=== PATIENT | female | born 1990 | race Caucasian/White ===

== ENCOUNTER → 2018-04-06 12:47 | Outpatient (CLI) | payer OTHER, MEDICAID, SELFPAY ==
--- NOTE | 2018-04-06 | DI.US.S_ITS ---
PROCEDURE: US PELVIC COMPLETE INDICATIONS: DISPLACEMENT IUD TECHNIQUE: Real-time scanning was performed of the pelvic organs, with image documentation. Additional endovaginal scanning was necessary due to incomplete visualization of the adnexal and endometrial structures by transabdominal scanning. COMPARISON: None. FINDINGS: Transabdominal scanning: Limited scanning through the kidneys shows no hydronephrosis. No pathologic free abdominal or pelvic fluid. Endovaginal scanning: Uterus: Uterus is normal in size at 7.7 x 3.6 x 4.9 cm. The endometrium measures 4.0 mm in combined thickness. Intrauterine device in expected position. Ovaries: Involuting 13 mm physiologic right ovarian cyst and otherwise normal appearance the ovaries. IMPRESSION: Intrauterine device in expected position. Dictated by: Jun HITCHCOCK Interpreted: Jaylin Jacome MD on 04/06/2018 at 14:13 Approved by: Jaylin Jacome M.D. on 04/06/2018 at 15:16
== END ==
PROVIDERS: PCP Family Medicine; Visit Provider Physician Assistant
DX: T83.9XXA Unspecified complication of genitourinary prosthetic device, implant and graft, initial encounter (principal)
CPT/HCPCS: 76830; 76856

== ENCOUNTER → 2019-01-31 13:50 | Outpatient (CLI) | payer OTHER, MEDICAID, SELFPAY ==
[2019-01-31 16:31] LABS: Urine N gonorrhoeae NOT DETECTED
[2019-01-31 16:32] LABS: Urine Chlamydia NOT DETECTED
== END ==
PROVIDERS: PCP Family Medicine; Visit Provider Obstetrics & Gynecology
DX: Z34.91 Encounter for supervision of normal pregnancy, unspecified, first trimester (principal)
CPT/HCPCS: 87491; 87591

== ENCOUNTER → 2019-03-01 11:34 | Outpatient (CLI) | payer OTHER, MEDICAID, SELFPAY ==
--- NOTE | 2019-03-01 11:36 | DI.US.S_ITS ---
PROCEDURE: US OB >= 14 WEEKS FETUS INDICATIONS: ANATOMY OUTSIDE/PRIOR DATING DATA: Last menstrual period (LMP): 09/27/18. LMP-based estimated date of delivery (YOLIE): 07/04/19. First dating scan (date and location): 12/22/18. Estimated date of delivery (YOLIE) from first dating scan: 07/12/19. TECHNIQUE: Real-time scanning was performed of the fetus, with image documentation and biometric measurements. COMPARISON: [facility], [place], US OB < 14 WEEKS, 12/22/2018, 11:52. FINDINGS: General: A single living intrauterine gestation is present. Presentation: Cephalic Placenta: Placental position is anterior Amniotic fluid index: 17.8 cm, normal range is 5-24 cm. heart rate: 145 beats per minute. Maternal cervical canal: 5.1 cm in length biometrics: Biparietal diameter: 5.2 cm, 21 weeks 5 days Head circumference: 18.7 cm, 21 weeks 0 days Abdominal circumference: 16.2 cm, 21 weeks 2 days Femur length: 3.2 cm, 19 weeks 6 days Estimated gestational age from initial scan: 21 weeks 0 days Composite gestational age from present scan: 21 weeks 0 days Estimated weight and percentile: 372 g (30th percentile) is Measurement variability for biometric dating: +/- 7 days from 14 weeks to 15 weeks 6 days gestation, +/- 10 days from 16 weeks to 21 weeks 6 days gestation, +/- 2 weeks from 22 weeks to 27 weeks 6 days gestation, +/- 3 weeks for 28 weeks gestation or later. weight reference: 4500 g or EFW >90/95% is considered macrosomia or large for gestational age. EFW <10% is small for gestational age. EFW 5% or less is considered intra-uterine growth restriction. Anatomic survey: Neuro: Ventricles are non-dilated at less than 10 mm. Cisterna magna is normal at 3-11 mm. Cerebellum is normal in size and morphology. Nuchal skin fold: Normal at less than 6 mm between 14-21 weeks gestational age. Face: Nose and lips, facial profile are normal. Spine: No evidence for spina bifida. Heart: 4-chambered heart is present, with normal ventricular outflow tracts. Diaphragm: Diaphragm is intact. Stomach: Left-sided stomach is present. Kidneys: No hydronephrosis. Normal is less than 5 mm in 2nd trimester, less than 7 mm in 3rd trimester. Cord: 3-vessel cord has orthotopic insertion. Bladder: Normal in size. Extremities: All 4 extremities identified. IMPRESSION: 1. Single live intrauterine at 21 weeks 0 days is concordant with the clinical dates and has demonstrated appropriate interval growth. 2. No anatomic abnormalities are evident. Dictated by: Tramaine Grande M.D. on 03/01/2019 at 14:50 Approved by: Tramaine Grande M.D. on 03/01/2019 at 14:52
== END ==
PROVIDERS: PCP Family Medicine; Visit Provider Obstetrics & Gynecology
DX: Z34.82 Encounter for supervision of other normal pregnancy, second trimester (principal); Z3A.21 21 weeks gestation of pregnancy
CPT/HCPCS: 76811

== ENCOUNTER → 2019-04-07 13:08 | Outpatient (CLI) | payer OTHER, MEDICAID, SELFPAY ==
[2019-04-07 13:43] LABS: Appearance Urine UA CLEAR; Bilirubin Urine UA NEGATIVE (NEGATIVE); Color Urine UA YELLOW; Glucose Urine UA NEGATIVE (Negative); Ketones Urine UA NEGATIVE (NEGATIVE); Leukocyte Esterase Urine UA NEGATIVE (NEGATIVE); Nitrite Urine UA NEGATIVE (Negative); Occult Blood Urine UA NEGATIVE (Negative); Protein Urine UA NEGATIVE (Negative); Urobilinogen Urine UA 0.2 E.U./dL (0.2); pH Urine UA 7.5 (4.5-8.0)
[2019-04-07 15:35] LABS: Add Manual Diff / Slide Review NO; Basophils Absolute Auto 0 /uL (0-100); Basophils Percent Auto 0.3 % (0-2); Eosinophils Absolute Auto 100 /uL (0-450); Hematocrit 33.8 % (36-46); Hemoglobin 11.5 g/dL (12.0-16.0); Lymphocytes Absolute Auto 1800 /uL (1100-4500); Lymphocytes Percent Auto 14.9 % (25-40); Mean Corpuscular HGB Conc 34.1 % (30-36); Mean Corpuscular Volume 87.7 fL (80-100); Monocytes Absolute Auto 900 /uL (0-900); Monocytes Percent Auto 7.3 % (3-14); Neutrophils Absolute Auto 9200 /uL (1500-7000); Neutrophils Percent Auto 76.5 % (50-75); Platelet Count 261 X10^3/uL (150-400); Red Blood Cell Count 3.85 X10^6/uL (4.0-5.2)
[2019-04-07 15:57] LABS: GTT (PREG) 1 Hour PP 50gm Dose 105 mg/dL (76-139)
[2019-04-07 16:42] LABS: Hepatitis B Surface Antigen NEGATIVE s/c (NEGATIVE); Rubella Antibody IgG 64.7 IU/mL (>15)
[2019-04-07 16:43] LABS: HIV 1 and 2 Antibody NEGATIVE (NEGATIVE); Hep C Virus Ab w/Reflex Quant NEGATIVE s/c (NEGATIVE)
[2019-04-09 17:08] LABS: RPR Screen Nonreactive (Nonreactive)
== END ==
PROVIDERS: PCP Family Medicine; Visit Provider Obstetrics & Gynecology
DX: Z34.82 Encounter for supervision of other normal pregnancy, second trimester (principal)
CPT/HCPCS: 36415; 80055; 81003; 82950; 86703; 86787; 86803; 86850; 86900; 86901; 87086

== ENCOUNTER → 2019-05-10 18:54 | Outpatient (ROUT) | payer OTHER, MEDICAID, SELFPAY ==
[2019-05-10 19:03] LABS: RBC Urine None Seen (0-5/HPF)
[2019-05-10 19:22] LABS: Appearance Urine UA CLEAR; Bilirubin Urine UA NEGATIVE (NEGATIVE); Color Urine UA YELLOW; Glucose Urine UA NEGATIVE (Negative); Ketones Urine UA TRACE (NEGATIVE); Leukocyte Esterase Urine UA NEGATIVE (NEGATIVE); Nitrite Urine UA NEGATIVE (Negative); Occult Blood Urine UA NEGATIVE (Negative); Protein Urine UA TRACE (Negative); Urobilinogen Urine UA 0.2 E.U./dL (0.2)
[2019-05-10 19:26] LABS: Amorphous Sediment Urine 1+; Bacteria Urine Occasional (0-1); Culture Indicated Urine Cult Not Indicated; Mucus Urine 3+ (Negative); Squamous Epithelial Cell Urine 1-5 /HPF (0-5/HPF); WBC Urine 1-5/HPF (0-5/HPF)
== END ==
PROVIDERS: PCP Family Medicine; Visit Provider Obstetrics & Gynecology
DX: R82.90 Unspecified abnormal findings in urine (principal)
CPT/HCPCS: 81001

== ENCOUNTER → 2019-06-07 17:15 | Outpatient (CLI) | payer OTHER, MEDICAID, SELFPAY ==
[2019-06-08 20:49] LABS: Strep Grp B PCR NEG for Grp B Strep
== END ==
PROVIDERS: PCP Family Medicine; Visit Provider Obstetrics & Gynecology
DX: Z36.85 Encounter for antenatal screening for Streptococcus B (principal); Z34.83 Encounter for supervision of other normal pregnancy, third trimester
CPT/HCPCS: 87653

== ENCOUNTER 2019-07-14 15:44 | Outpatient (CLI) | payer OTHER, MEDICAID, SELFPAY ==
--- NOTE | 2019-07-17 13:14 | P.TNLD_ITS ---
Visit Information Visit Information Date of evaluation: 07/14/19 Primary OB Provider: Missy Arreguin Reason for Evaluation: Yes non-stress test non-stress test reason: other (Postdates) [facility] Social History Smoking Status: Never smoker (MARIJUANA) Social History Smoking Status: Never smoker (MARIJUANA) Evaluation Evaluation Baseline heart rate: 145 Variability: Moderate (11-25) monitor accelerations: Present monitor decelerations: Absent Category of Tracing: I Cervical dilation (cm): 1 Cervical effacement (%): 85 Diagnosis, Plan/Disposition Plan/Disposition Plan: Assessment: 29-year-old 2 para 1 at 40-,2/7 weeks gestation with a category 1 nonstress test Plan: Follow -up 07/18/2019 for induction of labor kick counts reviewed OB Disposition: home
== END 2019-07-14 17:20 | disposition home or self-care (01) ==
LOC: LABOR 17:30 → OB 07-15 13:38
PROVIDERS: PCP Family Medicine; Visit Provider Obstetrics & Gynecology
DX: O48.0 Post-term pregnancy (principal); Z3A.40 40 weeks gestation of pregnancy
CPT/HCPCS: 59025; G0378; G0379

== ENCOUNTER 2019-07-17 18:52 | Inpatient (IN) | payer OTHER, MEDICAID, SELFPAY ==
[2019-07-17 20:25] LABS: Add Manual Diff / Slide Review NO; Basophils Absolute Auto 100 /uL (0-100); Basophils Percent Auto 0.5 % (0-2); Eosinophils Absolute Auto 100 /uL (0-450); Eosinophils Percent Auto 0.5 % (2-4); Hematocrit 31.5 % (36-46); Hemoglobin 10.3 g/dL (12.0-16.0); Lymphocytes Absolute Auto 2000 /uL (1100-4500); Lymphocytes Percent Auto 16.1 % (25-40); Mean Corpuscular HGB Conc 32.8 % (30-36); Mean Corpuscular Hemoglobin 26.9 PG (26-34); Mean Corpuscular Volume 81.9 fL (80-100); Monocytes Absolute Auto 900 /uL (0-900); Monocytes Percent Auto 7.6 % (3-14); Neutrophils Absolute Auto 9300 /uL (1500-7000); Neutrophils Percent Auto 75.3 % (50-75); Platelet Count 238 X10^3/uL (150-400); Red Blood Cell Count 3.84 X10^6/uL (4.0-5.2); Red Cell Distribution Width 14.4 % (11.6-14.8); White Blood Cell Count 12.3 X10^3/uL (4.5-11.0)
[2019-07-17] MEDS: miSOPROStol 25 MCG TABLET VAG (20:32)
[2019-07-18] MEDS: OXYTOCIN PREMIX 30 UNIT/500 ML PLAST..BAG IV (07:00)
[2019-07-18] MEDS: LACTATED RINGERS 1,000 ML 100 ML IV ×5 (07:00→20:35)
[2019-07-18] MEDS: FENT 2MCG/ML BUPIV 0.125% EPI 200 MCG/100 ML PLAST..BAG 10 MCG EPIDURAL (08:00)
[2019-07-18] MEDS: FENT 2MCG/ML BUPIV 0.125% EPI 200 MCG/100 ML PLAST..BAG 12 MCG EPIDURAL (16:31)
[2019-07-18] MEDS: ONDANSETRON 4 MG/2 ML INJ IV (17:05)
--- NOTE | 2019-07-18 17:23 | PM.OBHP.1 ---
OB HPI Date/Time Date of admission: 07/18/19 Date Patient Seen: 07/18/19 Time Patient Seen: 07:30 History of Present Condition Chief complaint: LABOR & DELIVERY : 2 Para: 1 Estimated Date of Delivery: 07/12/19 Estimated Gestational Age (weeks): 41 Narrative: Lindsey Garzon is a 29 year old female 2 para 1 at 41 weeks gestation. Patient received 1 Cytotec overnight. She is started on Pitocin. Indications Indication for induction OB: post dates History of Present care: good care, initiated at week # (10), number of visits (11) and pounds weight gain (40) Dating criteria: LMP confirmed by 1st trimester US Ultrasounds: normal 1st trimester US and normal mid trimester US Obstetrical complications: none Medical complications: none Preadmission Labs Blood type: O (+) positive -: Antibody screen: negative, GBS status: negative, HBsAG: negative, HIV: negative and RPR/VDLR: negative -: Chlamydia screen: not detected and Gonorrhea screen: not detected -: Rubella: immune and Varicella: immune HCAB: negative Urine: Lactobacillus 1 hr GTT: 105 Prior (ies) History: 07/15/[address] Arreguin Evaluation Evaluation Baseline heart rate: 135 Variability: Moderate (11-25) monitor accelerations: Present monitor decelerations: Absent Contraction Frequency (minutes): 3 Uterine Contraction Intensity: Moderate Category of Tracing: I Cervical dilation (cm): 3 Cervical effacement (%): 80 station: -1 Laboratory results: Laboratory Tests 07/17/19 07/17/19 19:45 19:45 WBC 12.3 H RBC 3.84 L Hgb 10.3 L Hct 31.5 L MCV 81.9 MCH 26.9 MCHC 32.8 RDW 14.4 Plt Count 238 Neut % (Auto) 75.3 H Lymph % (Auto) 16.1 L [place] % (Auto) 7.6 Eos % (Auto) 0.5 L Baso % (Auto) 0.5 Neut # (Auto) 9300 H Lymph # (Auto) 2000 [place] # (Auto) 900 Eos # (Auto) 100 Baso # (Auto) 100 Blood Type O Positive Antibody Screen Negative [facility] Social History Smoking Status: Current every day smoker Social History Smoking Status: Current every day smoker Meds Home Medications and Allergies Home Medications Medication Instructions Recorded Confirmed Type prenat.vits,valente,xiu-aurf-emhbr 1 tab PO DAILY 12/02/18 07/17/19 History lcmhmgxxzc-ncgljhizvqzcz-wgjdojcz See Rx Instructions PO Q4-6H PRN 06/10/19 07/17/19 Rx 50 mg-325 mg-40 mg tablet #30 tab Allergies Allergy/AdvReac Type Severity Reaction Status Date / Time amoxicillin Allergy Unknown Verified 07/17/19 20:16 Exam Vital Signs (past 8 hours): Generally: Patient in moderate distress secondary to pain and contractions Lungs: Clear to auscultation bilaterally Cardiovascular: Regular rate and rhythm FH: 40 cm Estimated weight: 8 lb Extremities: Negative Homans, no edema Objective Labs Result Diagrams: 07/17/19 19:45 Labs: Laboratory Results - last 24 hr 07/17/19 07/17/19 19:45 19:45 WBC 12.3 H RBC 3.84 L Hgb 10.3 L Hct 31.5 L MCV 81.9 MCH 26.9 MCHC 32.8 RDW 14.4 Plt Count 238 Neut % (Auto) 75.3 H Lymph % (Auto) 16.1 L [place] % (Auto) 7.6 Eos % (Auto) 0.5 L Baso % (Auto) 0.5 Neut # (Auto) 9300 H Lymph # (Auto) 2000 [place] # (Auto) 900 Eos # (Auto) 100 Baso # (Auto) 100 Blood Type O Positive Antibody Screen Negative Assessment and Plan Assessment and Plan Assessment and Plan narrative: Assessment: 29-year-old 2 para 1 at 41 weeks gestation status post Cytotec x1 Plan: Pitocin induction of labor Epidural as necessary Artificial rupture of membranes when able Expected management to spontaneous vaginal delivery
--- NOTE | 2019-07-18 21:42 | PM.OBPRVD ---
 Events: Labor Induction Labor & Delivery Delivery date: 07/18/19 Intrapartal events: None Cervical ripening method: per misoprostal protocol Induction method: per pitocin protocol Delivery augmentation: rupture of membranes Delivery monitor: external FHT, external uterine and internal uterine Route of delivery: Episiotomy description: None L&D Laceration Description: Labial (Left side first-degree) Delivery repair: vicryl Estimated blood loss (mL): 150 Anesthesia type: Epidural Complications: Double nuchal cord Narrative: Patient complete and pushed for about 30 minutes. At 9:21 p.m., a live male infant delivered spontaneously over an intact perineum. A double nuchal cord that was are loose were reduced on the perineum. The remainder of the body delivered without difficulty and infant was placed on mom's abdomen. The cord was double clamped and cut immediately and the infant was taken to the warmer due to decreased tone and decreased heart rate. The placenta delivered intact with a 3 vessel cord at 9:25 p.m.. Pitocin was given in the IV fluids prior to Placental delivery. Fundus was massaged to firm. There was a left-sided labial tear that was repaired with 3 0 Vicryl in a running fashion. Hemostasis was achieved. Apgars not available at the time of dictation. Epidural analgesia. . Mom stable to recovery. at the warmer with peds, RN, and RT. Plan for aftercare: To routine care
[2019-07-19] MEDS: IBUPROFEN 600 MG TABLET PO ×2 (00:50→08:46)
[2019-07-19 05:12] LABS: Hematocrit 30.6 % (36-46); Hemoglobin 10.1 g/dL (12.0-16.0)
[2019-07-19] MEDS: PRENATAL VIT,CALC/IRON/FOLIC 1 TABLET 1 TAB PO (08:46)
[2019-07-19] MEDS: DOCUSATE 250 MG CAPSULE PO (08:46)
--- NOTE | 2019-07-19 17:39 | P.DS_ITS ---
Discharge Providers Provider Date of admission: 07/17/19 18:52 Discharge Date: 07/19/19 Primary care physician: Fariba Malik MD Consults: 07/18/19 23:29 Consult to Polystyrene Bead Molder Routine Comment: Discharge provider: Missy Arreguin MD Summary Hospital Course Date Patient Seen: 07/19/19 Time Patient Seen: 08:30 Procedures: Cytotec cervical ripening Pitocin induction of labor Artificial rupture of membranes Epidural analgesia Intrauterine pressure catheter Spontaneous vaginal delivery Left labial laceration repair Hospital Course: Patient is a 29-year-old 2 para 2 who presented on 07/17/2019 for cervical ripening with Cytotec. She received 1 dose of 25 mcg intravaginal. On the morning of 07/18/2019 she had progressed to 2 cm. Pitocin was started. Artificial rupture of membranes was performed at approximately 10:00 a.m. with copious amounts of clear amniotic fluid. She received an epidural for pain management prior to artificial rupture membranes. She progressed slowly to complete dilation. She had some occasional variable decelerations. Just before delivery there was tachycardia that went from the 140s to 150s up to the 180s to 200s. The baby delivered soon after. At 9:21 p.m. she had a spontaneou s vaginal delivery of a live male . A left labial tear was repaired. The placenta delivered without complication. The baby required resuscitation. And was eventually transferred to [facility]. Mom had no complications and was discharged home on day # 1. She is to follow up at 6 weeks. Peripartum Data Delivery Method: Natural Vaginal Laceration description: Labial Episiotomy description: None complications: none Status at Discharge Cognitive/behavioral status at discharge: oriented Functional status at discharge: independent ambulation Overall status at discharge: patient is progressing back to baseline Time Spent with Patient Time attestation: Total time spent providing and/or coordinating discharge services: Time spent: Less than 30 minutes Objective Labs Result Diagrams: 07/19/19 04:50 Labs: Laboratory Results - last 24 hr 07/19/19 04:50 Hgb 10.1 L Hct 30.6 L Exam Vital Signs (past 8 hours): Generally: Patient is sitting up in bed, no acute distress Fundus: Firm at U -1 Perineum: Intact Extremities: Negative Homans, no edema Discharge Plan Discharge Plan Patient Disposition: Home Discharge comment: Call with fever, chills, redness or drainage around the incisions or bleeding vaginally more than a pad in an hour Discharge Med Rec/Prescriptions Prescriptions: New oxycodone-acetaminophen [Percocet] 5-325 mg tablet 1 tab PO Q4-6H PRN (Reason: pain) Qty: 20 RF: 0 ibuprofen 600 mg tablet 600 mg PO Q6H PRN (Reason: cramping) Qty: 30 RF: 0 Continued prenat.vits,valente,ypd-mpgv-grcng tablet 1 tab PO DAILY RF: 0 ukydpssmne-rfaoaqstfryyx-wbrq 50-325-40 mg tablet See Rx Instructions PO Q4-6H PRN (Reason: pain) Qty: 30 RF: 0 Follow up/Referrals: Missy Arreguin MD [Physician] - 6 Weeks (please f/u w/ Dr. Arreguin on Thursday, @ 3pm, check in @ 2:40pm) Provider Discharge Instructions Diet: Regular Activity: No intercourse Skin/Wound/Dressing Care Report to your healthcare provider any signs of infection, such as:: chills, fever, increased pain, unusual drainage and unusual redness Visit Report/Discharge Packet Instructions: DI for Labor and Delivery, Vaginal Stand Alone Forms: Discharge: Care Discharge Data Primary Care Provider: Fariba Malik Discharges patient from system. Discharge Date/Time: 07/19/19 10:39
== END 2019-07-19 10:39 | disposition home or self-care (01) | DRG 560 ==
PROVIDERS: Admitting Provider Obstetrics & Gynecology; PCP Family Medicine; Visit Provider Obstetrics & Gynecology
DX: O69.81X0 Labor and delivery complicated by cord around neck, without compression, not applicable or unspecified (principal); O70.0 First degree perineal laceration during delivery; Z3A.41 41 weeks gestation of pregnancy; Z37.0 Single live birth; O48.0 Post-term pregnancy
CPT/HCPCS: 01967; 36415; 59050; 59409; 76815; 85014; 85018; 85025; 86850; 86900; 86901; G0379; J2405; J2590

== ENCOUNTER → 2021-11-15 12:01 | Outpatient (CLI) | payer OTHER, MEDICAID, SELFPAY ==
[2021-11-15 19:00] LABS: Alanine Aminotransferase 11 IU/L (<35); Albumin 4.5 g/dL (3.5-5.0); Albumin Globulin Ratio 1.8 (1.0-2.8); Alkaline Phosphatase 45 U/L (38-126); Aspartate Aminotransferase 20 IU/L (14-36); BUN Creatinine Ratio 18.1 (6-22); Bilirubin Total 0.7 mg/dL (0.2-1.3); Blood Urea Nitrogen 13 mg/dL (7-17); Calcium 9.7 mg/dL (8.4-10.2); Carbon Dioxide 26 mmol/L (22-32); Chloride 107 mmol/L (98-107); Estimated Glomerular Filt Rate > 60.0 mL/min (>60); Globulin 2.5 g/dL (1.7-4.1); Glucose 91 mg/dL (70-100); HEMOLYSIS < 15 (0-50); Sodium 138 mmol/L (137-145)
[2021-11-15 19:07] LABS: Add Manual Diff / Slide Review NO; Basophils Absolute Auto 100 /uL (0-100); Eosinophils Absolute Auto 0 /uL (0-450); Eosinophils Percent Auto 0.4 % (2-4); Hematocrit 38.1 % (36-46); Hemoglobin 13.2 g/dL (12.0-16.0); Lymphocytes Absolute Auto 1900 /uL (1100-4500); Lymphocytes Percent Auto 19.7 % (25-40); Mean Corpuscular HGB Conc 34.8 % (30-36); Mean Corpuscular Hemoglobin 29.7 PG (26-34); Mean Corpuscular Volume 85.4 fL (80-100); Monocytes Absolute Auto 700 /uL (0-900); Monocytes Percent Auto 7.6 % (3-14); Neutrophils Absolute Auto 6800 /uL (1500-7000); Neutrophils Percent Auto 71.3 % (50-75); Platelet Count 259 X10^3/uL (150-400); Red Blood Cell Count 4.46 X10^6/uL (4.0-5.2); Red Cell Distribution Width 13.1 % (11.6-14.8); White Blood Cell Count 9.6 X10^3/uL (4.5-11.0)
[2021-11-15 19:18] LABS: Free T3, Triiodothyronine Free 3.37 pg/mL (2.77-5.27)
[2021-11-15 19:31] LABS: TSH w/ Reflex to FT4 1.58 uIU/mL (0.47-4.68)
== END ==
PROVIDERS: PCP Family Medicine; Visit Provider Physician Assistant Medical
DX: R00.2 Palpitations (principal); R06.00 Dyspnea, unspecified
CPT/HCPCS: 80053; 84443; 84481; 85025

== ENCOUNTER → 2021-12-11 10:14 | Outpatient (CLI) | payer OTHER, MEDICAID, SELFPAY ==
[2021-12-11 19:13] LABS: Pregnancy Test Serum,Qual Negative (Negative)
[2021-12-11 19:34] LABS: TSH w/ Reflex to FT4 1.89 uIU/mL (0.47-4.68)
== END ==
PROVIDERS: PCP Family Medicine; Visit Provider Physician Assistant
DX: F41.9 Anxiety disorder, unspecified (principal); N91.2 Amenorrhea, unspecified
CPT/HCPCS: 84443; 84703

== ENCOUNTER → 2022-07-09 15:14 | Outpatient (CLI) | payer OTHER, MEDICAID, SELFPAY | PROVIDERS: PCP Family Medicine; Visit Provider Physician Assistant | DX: R35.0 Frequency of micturition (principal) | CPT/HCPCS: 81002; 87086 ==

== ENCOUNTER → 2023-08-19 10:31 | Outpatient (CLI) | payer OTHER, SELFPAY ==
[2023-08-19 19:14] LABS: Add Manual Diff / Slide Review NO; Basophils Absolute Auto 0 /uL (0-100); Basophils Percent Auto 0.9 % (0-2); Eosinophils Absolute Auto 100 /uL (0-450); Eosinophils Percent Auto 2.2 % (2-4); Hematocrit 37.5 % (36-46); Hemoglobin 12.8 g/dL (12.0-16.0); Lymphocytes Absolute Auto 1800 /uL (1100-4500); Mean Corpuscular HGB Conc 34.1 % (30-36); Mean Corpuscular Hemoglobin 29.5 PG (26-34); Mean Corpuscular Volume 86.3 fL (80-100); Monocytes Absolute Auto 400 /uL (0-900); Monocytes Percent Auto 8.1 % (3-14); Neutrophils Absolute Auto 2700 /uL (1500-7000); Neutrophils Percent Auto 53.8 % (50-75); Platelet Count 267 X10^3/uL (150-400); Red Blood Cell Count 4.34 X10^6/uL (4.0-5.2); Red Cell Distribution Width 12.5 % (11.6-14.8)
[2023-08-19 19:39] LABS: Alanine Aminotransferase 17 IU/L (<35); Albumin 4.3 g/dL (3.5-5.0); Albumin Globulin Ratio 1.9 (1.0-2.8); Alkaline Phosphatase 41 U/L (38-126); Aspartate Aminotransferase 24 IU/L (14-36); BUN Creatinine Ratio 17.7 (6-22); Bilirubin Total 0.5 mg/dL (0.2-1.3); Blood Urea Nitrogen 14 mg/dL (7-17); Calcium 9.7 mg/dL (8.4-10.2); Carbon Dioxide 28 mmol/L (22-32); Chloride 105 mmol/L (98-107); Estimated Glomerular Filt Rate > 60 mL/min (>60); Globulin 2.3 g/dL (1.7-4.1); Glucose 83 mg/dL (70-100); HEMOLYSIS < 15 (0-50); Potassium 4.4 mmol/L (3.4-5.1); Sodium 138 mmol/L (137-145); Total Protein 6.6 g/dL (6.3-8.2)
[2023-08-19 19:59] LABS: Pregnancy Test Serum,Qual Negative (Negative)
[2023-08-19 20:05] LABS: TSH w/ Reflex to FT4 1.53 uIU/mL (0.47-4.68)
== END ==
PROVIDERS: PCP Physician Assistant; Visit Provider Physician Assistant
DX: R63.5 Abnormal weight gain (principal); N91.2 Amenorrhea, unspecified; L60.9 Nail disorder, unspecified; K90.0 Celiac disease; R53.83 Other fatigue
CPT/HCPCS: 80053; 84443; 84703; 85025

== ENCOUNTER → 2024-09-07 08:20 | Outpatient (CLI) | payer BC, SELFPAY | PROVIDERS: PCP Physician Assistant; Visit Provider Physician Assistant Medical | DX: G44.309 Post-traumatic headache, unspecified, not intractable (principal); S09.92XA Unspecified injury of nose, initial encounter; R04.0 Epistaxis | CPT/HCPCS: 87070; 87075; 87077; 87147; 87205 ==

== ENCOUNTER → 2025-04-26 11:32 | Outpatient (CLI) | payer BC, SELFPAY ==
[2025-04-26 19:28] LABS: Add Manual Diff / Slide Review NO; Hematocrit 39.1 % (36-46); Hemoglobin 13.4 g/dL (12.0-16.0); Lymphocytes Absolute Auto 1300 /uL (1100-4500); Mean Corpuscular HGB Conc 34.4 % (30-36); Mean Corpuscular Hemoglobin 29.6 PG (26-34); Mean Corpuscular Volume 86.1 fL (80-100); Platelet Count 295 X10^3/uL (150-400)
[2025-04-26 19:42] LABS: Alanine Aminotransferase 19 IU/L (<35); Albumin 4.5 g/dL (3.5-5.0); Albumin Globulin Ratio 1.9 (1.0-2.8); Alkaline Phosphatase 46 U/L (38-126); Blood Urea Nitrogen 15 mg/dL (7-17); Calcium 9.5 mg/dL (8.4-10.2); Carbon Dioxide 29 mmol/L (22-32); Chloride 105 mmol/L (98-107); Cholesterol 224 mg/dL (140-199); Estimated Glomerular Filt Rate > 60 mL/min (>60); Globulin 2.4 g/dL (1.7-4.1); Glucose 75 mg/dL (70-99); HDL Cholesterol 56 mg/dL (40-60); HEMOLYSIS < 15 (0-50); Potassium 4.5 mmol/L (3.4-5.1); Sodium 139 mmol/L (137-145); Total Protein 6.9 g/dL (6.3-8.2); Triglycerides 79 mg/dL (35-150)
[2025-04-26 19:43] LABS: HEMOLYSIS < 15 (0-50); Iron 136 ug/dL (37-170)
[2025-04-26 19:59] LABS: Vitamin D 25 Hydroxy (D3) 33.4 ng/mL (30.0-100.0)
[2025-04-26 20:05] LABS: Percent Iron Saturation 55 % (15-50); Total Iron Binding Capacity 249 ug/dL (265-497); Transferrin 198 mg/dL (206-381)
[2025-04-26 20:14] LABS: Hemoglobin A1C% w Est Avg Glu 4.8 % (4.0-6.0)
[2025-04-26 20:17] LABS: Thyroid Stimulating Hormone 1.50 uIU/mL (0.47-4.68)
[2025-04-26 20:18] LABS: Ferritin 55 ng/mL (6-137)
[2025-04-26 20:37] LABS: Vitamin B12 604 pg/mL (239-931)
== END ==
PROVIDERS: PCP Family Medicine; Visit Provider Family Medicine
DX: N91.2 Amenorrhea, unspecified (principal); M25.50 Pain in unspecified joint; Z13.1 Encounter for screening for diabetes mellitus; Z13.0 Encounter for screening for diseases of the blood and blood-forming organs and certain disorders involving the immune mechanism; Z13.220 Encounter for screening for lipoid disorders; K90.0 Celiac disease; Z86.2 Personal history of diseases of the blood and blood-forming organs and certain disorders involving the immune mechanism
CPT/HCPCS: 80053; 80061; 82306; 82607; 82728; 83036; 83540; 83550; 84443; 85025; 85651; 86038